=== PATIENT | male | born 1980 | race Native Hawaiian/Other Pacific Islander ===

== ENCOUNTER 2023-03-18 13:37 | Emergency (ER) | payer OTHER ==
[~2023-03-18] VITALS: Ht 188 cm; Wt 136.1 kg
== END 2023-03-18 16:14 | disposition home or self-care (01) ==
LOC: ED 13:37
DX: M51.36 Other intervertebral disc degeneration, lumbar region (principal)
CPT/HCPCS: 96372; 99283; J1885; J2930